=== PATIENT | male | born 1960 | race Caucasian/White ===

== ENCOUNTER 2020-03-06 18:45 | Emergency (ER) | payer MEDICAID, OTHER ==
[~2020-03-06] VITALS: Ht 182.9 cm; Wt 95.0 kg
[~2020-03-06 18:45] MED LIST: ASPI-630 PO; FOLI1TAB16 PO; HYDR100C2 PO; IBUP-1060 PO; MULT1TAB97 PO; PANT40TA77 PO; PARO40TA3 PO; PRAZ2CAP2 PO; PROVENTIL HFA6.7 GM IH; QUET300T PO; RANI150T2 PO; THIA100T22 PO; TRAM50TA PO
[2020-03-06] MEDS ORDERED: DICYCLOMINE 20 MG/2 ML VIAL. IM ONE (19:45)
[2020-03-06] MEDS ORDERED: ONDANSETRON PF 4 MG/2 ML VIAL. IVP ONE (19:45)
[2020-03-06] MEDS ORDERED: IV NORMAL SALINE 1000ML BAG 1,000 ML IV ONE (19:45)
[2020-03-06] MEDS ORDERED: fentaNYL PF VIAL 100 MCG/2 ML VIAL IVP ONE (19:45)
--- NOTE | 2020-03-06 20:03 | ED.ADGEN ---
General Adult EDM: Chief Complaint: ABDOMINAL PAIN HPI: HPI: 60-year-old male coming in via EMS form a hotel that is housing Covid positive patients. He is complaining of 2 hours of 3-4 episodes of each vomiting and diarrhea. He tested positive for Covid 2 days ago. He denies any fevers, headaches, cough, chest pain or shortness of breath. Has a history of GERD and gastroenteritis but has not had his medications for 1 day. He is only able to state that he takes omeprazole, does not member any other medications. Review of Systems: Review of Systems: All other systems within normal limits except for as noted in the HPI Current Medications: Current Medications Medications (Trade) Dose Ordered Sig/Helen Start Time Stop Time Status Last Admin Dose Admin Acetaminophen/ Hydrocodone Bitart (Lortab 5/325) 1 tab STK-MED ONCE 03/06/20 22:18 03/06/20 22:19 DC Dicyclomine HCl (Bentyl) 20 mg 1X ONCE 03/06/20 19:45 03/06/20 20:31 DC 03/06/20 20:55 20 MG Fentanyl Citrate (Fentanyl 2ml Vial) 75 mcg 1X ONCE 03/06/20 19:45 03/06/20 20:31 DC 03/06/20 20:52 75 MCG Ondansetron HCl (Zofran) 4 mg 1X ONCE 03/06/20 19:45 03/06/20 20:31 DC 03/06/20 20:51 4 MG Sodium Chloride 1,000 ml @ 1,000 mls/hr 1X ONCE 03/06/20 19:45 03/06/20 20:44 DC 03/06/20 20:51 1,000 MLS/HR Allergies: Allergies: Allergies Coded Allergies Type Severity Reaction Last Updated Verified ketorolac Allergy Mild itching 03/06/20 Yes oxycodone Allergy Mild itching 03/06/20 Yes meperidine Allergy Unknown 03/06/20 Yes Physical Exam: PE: Constitutional: Well developed, well nourished, no acute distress, non-toxic appearance. [] HENT: Normocephalic, atraumatic, bilateral external ears normal, nose normal. [] Eyes: PERRLA, conjunctiva normal, no discharge. [] Neck: No rigidity, supple, no stridor. [] Cardiovascular: Regular rate and rhythm, brisk cap refill [] Lungs & Thorax: Non labored symmetric respirations, no tachypnea or respiratory distress [] Abdomen: Soft, nondistended, lower abdomen tenderness without guarding or rebound. Skin: Warm, dry, no erythema, no rash. [] Back: No tenderness, no CVA tenderness. [] Extremities: No deformities, range of motion grossly intact, no lower extremity edema [] Neurologic: Alert and oriented X 3, no focal deficits noted. [] Psychologic: Affect normal, judgement normal, mood normal. [] Current Patient Data: Labs: Laboratory Tests Test 03/06/20 20:30 03/06/20 22:20 White Blood Count 4.8 x10^3/uL (4.0-11.0) Red Blood Count 4.24 x10^6/uL (4.30-5.70) L Hemoglobin 12.6 g/dL (13.0-17.5) L Hematocrit 37.5 % (39.0-53.0) L Mean Corpuscular Volume 89 fL (79-100) Mean Corpuscular Hemoglobin 30 pg (25-35) Mean Corpuscular Hemoglobin Concent 34 g/dL (31-37) Red Cell Distribution Width 16.9 % (11.5-14.5) H Platelet Count 245 x10^3/uL (140-400) Neutrophils (%) (Auto) 72 % (31-73) Lymphocytes (%) (Auto) 16 % (24-48) L Monocytes (%) (Auto) 11 % (0-9) H Eosinophils (%) (Auto) 1 % (0-3) Basophils (%) (Auto) 1 % (0-3) Neutrophils # (Auto) 3.4 x10^3/uL (1.8-7.7) Lymphocytes # (Auto) 0.7 x10^3/uL (1.0-4.8) L Monocytes # (Auto) 0.5 x10^3/uL (0.0-1.1) Eosinophils # (Auto) 0.0 x10^3/uL (0.0-0.7) Basophils # (Auto) 0.0 x10^3/uL (0.0-0.2) Sodium Level 130 mmol/L (136-145) L Potassium Level 4.0 mmol/L (3.5-5.1) Chloride Level 98 mmol/L (98-107) Carbon Dioxide Level 23 mmol/L (21-32) Anion Gap 9 (6-14) Blood Urea Nitrogen 9 mg/dL (8-26) Creatinine 0.7 mg/dL (0.7-1.3) Estimated GFR (Cockcroft-Gault) 115.8 BUN/Creatinine Ratio 13 (6-20) Glucose Level 92 mg/dL (70-99) Calcium Level 9.1 mg/dL (8.5-10.1) Total Bilirubin 0.2 mg/dL (0.2-1.0) Aspartate Amino Transferase (AST) 23 U/L (15-37) Alanine Aminotransferase (ALT) 24 U/L (16-63) Alkaline Phosphatase 67 U/L (46-116) Total Protein 6.5 g/dL (6.4-8.2) Albumin 3.3 g/dL (3.4-5.0) L Albumin/Globulin Ratio 1.0 (1.0-1.7) Lipase 87 U/L (73-393) Urine Collection Type Unknown Urine Color Yellow Urine Clarity Clear Urine pH 8.5 (<5.0-8.0) Urine Specific [place] 1.015 (1.000-1.030) Urine Protein Negative mg/dL (NEG-TRACE) Urine Glucose (UA) Negative mg/dL (NEG) Urine Ketones (Stick) Negative mg/dL (NEG) Urine Blood Negative (NEG) Urine Nitrite Negative (NEG) Urine Bilirubin Negative (NEG) Urine Urobilinogen Dipstick 0.2 mg/dL (0.2 mg/dL) Urine Leukocyte Esterase Negative (NEG) Urine RBC 0 /HPF (0-2) Urine WBC 0 /HPF (0-4) Urine Bacteria 0 /HPF (0-FEW) Urine Opiates Screen Pos (NEG) Urine Methadone Screen Neg (NEG) Urine Barbiturates Neg (NEG) Urine Phencyclidine Screen Neg (NEG) Urine Amphetamine/Methamphetamine Neg (NEG) Urine Benzodiazepines Screen Neg (NEG) Urine Cocaine Screen Neg (NEG) Urine Cannabinoids Screen Neg (NEG) Urine Ethyl Alcohol Neg (NEG) Laboratory Tests 03/06/20 20:30 Laboratory Tests 03/06/20 20:30 Vital Signs: Vital Signs Date Time Temp Pulse Resp B/P (MAP) Pulse Ox O2 Delivery O2 Flow Rate FiO2 03/06/20 22:22 98 Room Air 03/06/20 20:52 24 03/06/20 20:39 80 149/97 (114) 03/06/20 18:47 97.9 97.9 EKG: EKG: [] Heart Score: Risk Factors: Risk Factors: DM, Current or recent (<one month) smoker, HTN, HLP, family history of CAD, obesity. Risk Scores: Score 0 - 3: 2.5% MACE over next 6 weeks - Discharge Home Score 4 - 6: 20.3% MACE over next 6 weeks - Admit for Clinical Observation Score 7 - 10: 72.7% MACE over next 6 weeks - Early Invasive Strategies Radiology/Procedures: Radiology/Procedures: [] Course & Med Decision Making: Course & Med Decision Making Pertinent Labs and Imaging studies reviewed. (See chart for details) Exam abdominal exam and patient tolerating p.o. pain medicines. No indication for imaging as symptoms are improved and controlled with benign exam. Lab results unremarkable [] Ericon Disclaimer: Ariel Disclaimer: This electronic medical record was generated, in whole or in part, using a voice recognition dictation system. Departure Departure Impression: Primary Impression: Nausea vomiting and diarrhea Disposition: 01 DC HOME SELF CARE/HOMELESS Condition: STABLE Patient Instructions: Nausea and Vomiting Additional Instructions: [facility] [address] [place] [address] [facility] [address] [place] [address] [facility] [address] [facility] [place] [address] [facility] [address] [place] [address] [facility] [address] [place] [address] [address] [place] [address] [address] [place] [address] [facility] [address] [place] [address] [facility] [address] [place] [address] [facility] [address] [place] [address] Scripts Tramadol Hcl (TRAMADOL HCL) 50 Mg Tablet 50 MG PO Q6HRS PRN for PAIN for 3 Days, #12 TAB Prov: KRYSTINA MAGUIRE MD 03/06/20 Ondansetron (ONDANSETRON ODT) 4 Mg Tab.rapdis 1 TAB PO PRN Q6-8HRS PRN for NAUSEA for 5 Days, #16 TAB Prov: KRYSTINA MAGUIRE MD 03/06/20 Omeprazole (OMEPRAZOLE) 20 Mg Tablet.dr 1 TAB PO DAILY for antacid for 30 Days, #30 TAB 3 Refills Prov: KRYSTINA MAGUIRE MD 03/06/20 KRYSTINA MAGUIRE MD Mar 06, 2020 20:03
[2020-03-06 20:53] LABS: BASO % 1 % (0-3); EOS % 1 % (0-3); HEMATOCRIT 37.5 % (39.0-53.0); HEMOGLOBIN 12.6 g/dL (13.0-17.5); LYMPH # 0.7 x10^3/uL (1.0-4.8); LYMPH % 16 % (24-48); MEAN CORPUSCULAR HEMOGLOBIN 30 pg (25-35); MEAN CORPUSCULAR HGB CONC 34 g/dL (31-37); MEAN CORPUSCULAR VOLUME 89 fL (79-100); MONO # 0.5 x10^3/uL (0.0-1.1); MONO % 11 % (0-9); NEUT # 3.4 x10^3/uL (1.8-7.7); NEUT % 72 % (31-73); PLATELET COUNT 245 x10^3/uL (140-400); RED BLOOD COUNT 4.24 x10^6/uL (4.30-5.70); RED CELL DISTRIBUTION WIDTH 16.9 % (11.5-14.5); WHITE BLOOD COUNT 4.8 x10^3/uL (4.0-11.0)
[2020-03-06 21:10] LABS: CALCIUM 9.1 mg/dL (8.5-10.1); CREATININE 0.7 mg/dL (0.7-1.3); GFR 115.8
[2020-03-06 21:15] LABS: ALBUMIN 3.3 g/dL (3.4-5.0); TOTAL BILIRUBIN 0.2 mg/dL (0.2-1.0); TOTAL PROTEIN 6.5 g/dL (6.4-8.2)
[2020-03-06] MEDS ORDERED: HYDROcodone/APAP 5/325MG 1 TAB TABLET ONE (22:18)
[2020-03-06 22:28] LABS: BILIRUBIN,URINE NEGATIVE (NEG); CLARITY,URINE CLEAR; COLOR,URINE YELLOW; NITRITE,URINE NEGATIVE (NEG); PH,URINE 8.5 (<5.0-8.0); PROTEIN,URINE NEGATIVE (NEG-TRACE); UROBILINOGEN,URINE 0.2 mg/dL (0.2 mg/dL)
[2020-03-06] MEDS ORDERED: HYDROcodone/APAP 5/325MG 1 TAB TABLET PO ONE (22:30)
[2020-03-06 22:35] LABS: BACTERIA,URINE 0 /HPF (0-FEW); BARBITURATES NEG (NEG); BENZODIAZEPINES NEG (NEG); CANNABINOIDS NEG (NEG); COCAINE NEG (NEG); METHADONE NEG (NEG); OPIATES POS (NEG); PHENCYCLIDINE NEG (NEG); RBC,URINE 0 /HPF (0-2); WBC,URINE 0 /HPF (0-4)
[2020-03-06 22:37] LABS: AMPHETAMINE/METHAMPHETAMINE NEG (NEG)
[2020-03-06] MEDS ORDERED: TRAM50TA PO (23:08)
[2020-03-06] MEDS ORDERED: OMEP20TA8 PO (23:08)
[2020-03-06] MEDS ORDERED: ONDA4TAB12 PO (23:08)
[2020-03-06 23:09] VITALS: BP 129/96
== END 2020-03-07 00:35 | disposition home or self-care (01) ==
LOC: ER 18:45 → MERGE 18:45 → ER 03-07 00:35
DX: R11.2 Nausea with vomiting, unspecified (principal); R19.7 Diarrhea, unspecified; Z88.5 Allergy status to narcotic agent; Z88.8 Allergy status to other drugs, medicaments and biological substances
CPT/HCPCS: 36415; 80053; 80307; 81001; 83690; 85025; 96361; 96372; 96374; 96375; 99285; J0500; J2405; J3010; J7030

== ENCOUNTER 2020-03-15 23:53 | Emergency (ER) | payer MEDICAID ==
[~2020-03-15] VITALS: Ht 172.7 cm; Wt 84.1 kg
[~2020-03-15 23:53] MED LIST changes: +OMEP20TA8 PO; +ONDA4TAB12 PO
[2020-03-16] MEDS ORDERED: LIDO:MAALOX 1:1 20 ML SINGLE DOSE. SWSW ONE (00:30)
--- NOTE | 2020-03-16 00:33 | PHYS DOC ---
Past Medical History Past Medical History: Hypertension, Other Additional Past Medical Histor: ABDOMINAL PAIN Past Surgical History: Appendectomy, Other Additional Past Surgical Histo: right shoulder Smoking Status: Current Every Day Smoker Alcohol Use: None Drug Use: None General Adult EDM: Chief Complaint: ABDOMINAL PAIN HPI: HPI: 60-year-old male past medical history of hypertension and diagnosed with Covid 03/04 (per pts' report - is currently living in hotel that houses covid individuals), presents to the ED with complaints of lower abdominal pain that has been constant for 2 months. States he usually follows at the [facility] and had an upper GI in January. Unsure of the results because he never followed up. Patient states he usually gets a GI cocktail and his symptoms go away. Surgical history of appendectomy. Patient reports IV blood draws/sticks, hurt more than his current abdominal pain. Denies any IV drug use. States he normally drinks alcohol but hasn't been able to in the past 5 weeks. Associated nausea and loose watery stool for the past 2 days. No recent antibiotics. Denies any trauma. Is requesting a stronger pain medication other than Tylenol, ibuprofen and a GI cocktail. Review of Systems: Review of Systems: Constitutional: Denies fever or chills. [] Eyes: Denies change in visual acuity. [] HENT: Denies nasal congestion or sore throat. [] Respiratory: Denies cough or shortness of breath or hemoptysis Cardiovascular: Denies chest pain or edema or syncope GI: Denies melena, hematochezia, hematemesis : Denies dysuria or dysuria Musculoskeletal: Denies back pain or joint pain. [] Integument: Denies rash or diaphoresis Neurologic: Denies headache, focal weakness or sensory changes. [] Endocrine: Denies polyuria or polydipsia. [] Lymphatic: Denies swollen glands. [] Psychiatric: Denies depression or anxiety. [] Heart Score: Risk Factors: Risk Factors: DM, Current or recent (<one month) smoker, HTN, HLP, family history of CAD, obesity. Risk Scores: Score 0 - 3: 2.5% MACE over next 6 weeks - Discharge Home Score 4 - 6: 20.3% MACE over next 6 weeks - Admit for Clinical Observation Score 7 - 10: 72.7% MACE over next 6 weeks - Early Invasive Strategies Current Medications: Current Medications Medications (Trade) Dose Ordered Sig/Helen Start Time Stop Time Status Last Admin Dose Admin Multi-Ingredient Mouthwash/Gargle (Gi Cocktail) 20 ml 1X ONCE 03/16/20 00:30 03/16/20 00:31 UNV Allergies: Allergies: Allergies Coded Allergies Type Severity Reaction Last Updated Verified ketorolac Allergy Mild itching 03/06/20 Yes oxycodone Allergy Mild itching 03/06/20 Yes meperidine Allergy Unknown 03/06/20 Yes Physical Exam: PE: Constitutional: Well developed, well nourished, no acute distress/calm/sleeping, non-toxic appearance. HENT: Normocephalic, atraumatic, Eyes: EOMI, conjunctiva normal, no discharge. Neck: Normal range of motion, supple, Cardiovascular: S1/2 present, regular rhythm Lungs & Thorax: Speaking in full sentences, bilateral equal chest rise, no tachypnea or increased work of breathing Abdomen: soft, no focal or localized tenderness, tolerates abdominal exam, no peritonitis or guarding, no Perez sign, no Rovsing sign, no pain over McBurney's point tenderness Skin: Warm, dry, no erythema, no rash. [] Back: No tenderness, no CVA tenderness. [] Extremities: No tenderness, no cyanosis, no edema Neurologic: Alert and oriented X 3, normal motor function, normal sensory function, no focal deficits noted. [] Psychologic: Affect normal, judgement normal, mood normal. [] Current Patient Data: Vital Signs: Vital Signs Date Time Temp Pulse Resp B/P (MAP) Pulse Ox O2 Delivery O2 Flow Rate FiO2 03/15/20 23:54 98.1 90 16 145/92 (109) 94 Room Air 98.1 EKG: EKG: [] Radiology/Procedures: Radiology/Procedures: IMAGING REPORT Signed PATIENT: HERNESTO LOPEZ ACCOUNT: [id number] : 1960 LOCATION: ER AGE: 60 SEX: M EXAM STATUS: DEP ER ORD. PHYSICIAN: RANDAL HOLLEY DO REASON: abdominal pain, nausea and vomiting PROCEDURE: ACUTE ABDOMEN SERIES Study: XR ABDOMEN COMP ACUTE Indication: Abdominal pain, nausea and vomiting. Comparison: CT abdomen/pelvis 01/28/2020; acute abdominal series 01/09/2018 Findings: Unchanged cardiomediastinal silhouette. Similar configuration of the arelis. Increased lung markings with a relative subpleural and basilar predilection that are slightly more noticeable from the comparison. No dense infiltrate, layering effusion or pneumothorax. Partially visualized surgical hardware within the proximal right humerus. Gaseous distention of small bowel without pathologic dilatation. Gas is scattered throughout the colon and seen within the rectum also without pathologic dilatation. No definitive air-fluid level on the upright view. No free air seen under the diaphragm. Possible mild mucosal thickening of small bowel at the left lower quadrant. Chronic/degenerative osseous findings are fully characterized on this exam to include lumbar levocurvature with the apex at L3. Impression: 1. The bowel gas pattern is nonobstructive. No free air is identified. 2. Possible mild small bowel mucosal edema at the left lower quadrant. An enteritis is a consideration. 3. Slightly more noticeable interstitial markings from the comparison. No confluent infiltrate to suggest an organizing pneumonia. Underlying emphysema is a consideration. Electronically signed by: HENOK CANNON MD (03/16/2020 7:52 AM) [id number] DICTATED and SIGNED BY: HENOK CANNON MD DATE: 03/16/20 [id number] 0 Course & Med Decision Making: Course & Med Decision Making Pertinent Labs and Imaging studies reviewed. (See chart for details) Pt with mild, colon abdominal pain, no diarrhea/vomiting in ed, possible enteritis. Will refer to GI to have lower colonoscopy performed. Abdomen is soft. No active nausea, vomiting or diarrhea in ED. Patient very comfortable and resting in stretcher. Patient has been sleeping in the ED and is in no active distress. no indication for CT imaging at this time given benign exam, length of sxs (2mns) and risk of radiation-induced malignancy in the setting of chronic pain (pt educated on this). No indication for narcotic analgesia - pt educated on this and risk of addiction. Pt reports if he's discharged he will check in again to get these medications. Pt aware I'm the only physician/provider and he has been cleared of life/limb threatening conditions. Will discharge home with strict ED return precautions were given for dehydration, severe abdominal or back pain, saddle anesthesia, urine or bowel retention or incontinence. Encouraged urgent outpatient follow-up with PMD and GI. Life-threatening processes were considered but are low suspicion at this time, given history, physical exam and ED workup. Pt was educated on all prescription medications and adverse effects. All patient's questions were answered and pt was stable at time of discharge. Life/limb-threatening differential includes but is not limited to, aortic dissection, aortic aneurysm, acute coronary syndrome, surgical abdomen (appendicitis, cholecystitis, ischemic bowel, strangulated hernia, etc), bowel obstruction or volvulus, bladder outlet obstruction, gastrointestinal bleeding, inflammatory bowel disease, peptic ulcer disease, ACS/CAD, sepsis, diverticular disease, ureterolithiasis, nephrolithiasis, testicular torsion, or genitourinary infection. I spoken with the patient and her caregivers. I explained the patient's condition, diagnoses and treatment plan based on the information available to me at this time. I have answered the patient and her caregiver's questions and addressed any concerns. The patient and her caregivers have a good understanding of patient's diagnosis, condition and treatment plan as can be expected at this point. Vital signs have been stable. Patient's condition is stable and appropriate for discharge from the emergency department. Patient will pursue further outpatient evaluation with primary care physician or other designated or consulting physician as outlined in the discharge instructions. The patient and/or caregivers are agreeable to this plan of care and follow-up instructions have been explained in detail. The patient and/or caregivers have received these instructions in written form and have expressed an understanding of the discharge instructions. The patient and/or caregivers are aware that any significant change of condition or worsening of symptoms should prompt immediate return to this or the closest emergency department or call to 1. Ariel Disclaimer: Ariel Disclaimer: This electronic medical record was generated, in whole or in part, using a voice recognition dictation system. Departure Departure Impression: Primary Impression: Chronic abdominal pain Additional Impression: Encounter for chronic pain management Disposition: 01 DC HOME SELF CARE/HOMELESS Condition: STABLE Referrals: NO PCP (PCP) FOLLOW UP WITH FAMILY MEDICINE: Family Medicine Address: [address] [facility] [address] [place] [address] Patient Instructions: Abdominal Pain Additional Instructions: FOLLOW UP WITH GASTROENTEROLOGY: Gastroenterology [facility] Address: [address] [place] [address] EMERGENCY DEPARTMENT GENERAL DISCHARGE INSTRUCTIONS Thank you for coming to [facility] Emergency Department (ED) today and trusting us with you care. We trust that you had a positive experience in our Emergency Department. If you wish to speak to the department management, you may call the Director at [phone]. YOUR FOLLOW UP INSTRUCTIONS ARE FOLLOWS: 1. Do you have a private Doctor? If you do not have a private doctor, please ask for a resource list of physicians or clinics that may be able to assist you with follow up care. 2. The Emergency Physicain has interpreted your x-rays. The X-Ray specialist will also review them. If there is a change in the findings, you will be notified in 48 hours when at all possible. 3. A lab test or culture has been done, your results will be reviewed and you will be notified if you need a change in treatment. ADDITIONAL INSTRUCTIONS AND INFORMATION: 1. Your care today has been supervised by a physician who is specially trained in emergency care. Many problems require more than one evaluation for a complete diagnosis and treatment. We recommend that you schedule your follow up appointment as recommended to ensure complete treatment of you illness or injury. If you are unable to obtain follow up care and continue to have a problem, or if your condition worsens, we recommend that you return to the ED. 2. We are not able to safely determine your condition over the phone nor are we able to give sound medical advice over the phone. For these safety reasons, if you call for medical advice we will ask you to come to the ED for further evaluation. 3. If you have any questions regarding these discharge instructions please call the ED at [phone]. SAFETY INFORMATION: In the interest of safety, wellness, and injury prevention; we encourage you to wear your sealbelt, if you smoke; quite smoking, and we encourage family to use a protective helmet for bicycling and other sporting events that present an increased risk for head injury. IF YOUR SYMPTOMS WORSEN OR NEW SYMPTOMS DEVELOP, OR YOU HAVE CONCERNS ABOUT YOUR CONDITION; OR IF YOUR CONDITION WORSENS WHILE YOU ARE WAITING FOR YOUR FOLLOW UP APPOINTMENT; EITHER CONTACT YOUR PRIMARY CARE DOCTOR, THE PHYSICIAN WHOSE NAME AND NUMBER YOU WERE GIVEN, OR RETURN TO THE ED IMMEDIATELY. DUGLAS KOCH DO Mar 16, 2020 00:33
[2020-03-16 01:00] VITALS: BP 136/86
[2020-03-16 01:09] LABS: BARBITURATES NEG (NEG); BENZODIAZEPINES NEG (NEG); CANNABINOIDS NEG (NEG); COCAINE NEG (NEG); METHADONE NEG (NEG); OPIATES NEG (NEG); PHENCYCLIDINE NEG (NEG)
[2020-03-16 01:10] LABS: AMPHETAMINE/METHAMPHETAMINE NEG (NEG)
[2020-03-16 01:27] LABS: BILIRUBIN,URINE NEGATIVE (NEG); CLARITY,URINE CLEAR; COLOR,URINE YELLOW; NITRITE,URINE NEGATIVE (NEG); PROTEIN,URINE NEGATIVE (NEG-TRACE); UROBILINOGEN,URINE 0.2 mg/dL (0.2 mg/dL)
[2020-03-16 01:33] LABS: BACTERIA,URINE 0 /HPF (0-FEW); RBC,URINE 0 /HPF (0-2); WBC,URINE OCC /HPF (0-4)
[2020-03-16 01:40] LABS: BASO # 0.1 x10^3/uL (0.0-0.2); BASO % 1 % (0-3); EOS # 0.1 x10^3/uL (0.0-0.7); EOS % 1 % (0-3); HEMATOCRIT 38.9 % (39.0-53.0); HEMOGLOBIN 13.2 g/dL (13.0-17.5); LYMPH # 1.5 x10^3/uL (1.0-4.8); LYMPH % 13 % (24-48); MEAN CORPUSCULAR HEMOGLOBIN 30 pg (25-35); MEAN CORPUSCULAR HGB CONC 34 g/dL (31-37); MEAN CORPUSCULAR VOLUME 89 fL (79-100); MONO % 9 % (0-9); NEUT # 8.8 x10^3/uL (1.8-7.7); NEUT % 76 % (31-73); PLATELET COUNT 369 x10^3/uL (140-400); RED BLOOD COUNT 4.37 x10^6/uL (4.30-5.70); RED CELL DISTRIBUTION WIDTH 16.7 % (11.5-14.5); WHITE BLOOD COUNT 11.6 x10^3/uL (4.0-11.0)
[2020-03-16 01:48] LABS: CALCIUM 9.4 mg/dL (8.5-10.1); CREATININE 1.3 mg/dL (0.7-1.3); GFR 56.7; POTASSIUM 4.2 mmol/L (3.5-5.1)
== END 2020-03-16 02:25 | disposition home or self-care (01) ==
LOC: ER 23:53 → MERGE 23:53 → ER 03-16 02:25
DX: G89.29 Other chronic pain (principal); R10.30 Lower abdominal pain, unspecified; R11.0 Nausea; R19.7 Diarrhea, unspecified; I10 Essential (primary) hypertension; F17.200 Nicotine dependence, unspecified, uncomplicated; Z90.89 Acquired absence of other organs; Z98.890 Other specified postprocedural states; Z88.5 Allergy status to narcotic agent; Z88.8 Allergy status to other drugs, medicaments and biological substances
CPT/HCPCS: 36415; 80048; 80307; 81001; 83690; 85025; 99283; G0480

== ENCOUNTER 2020-03-16 05:30 | Emergency (ER) | payer SELFPAY ==
[~2020-03-16] VITALS: Ht 172.7 cm; Wt 84.1 kg
[2020-03-16 06:00] VITALS: BP 148/99
[2020-03-16] MEDS ORDERED: ONDANSETRON ODT 4 MG TAB.RAPDIS. PO ONE (07:30)
--- NOTE | 2020-03-16 07:42 | PHYS DOC ---
Past Medical History Past Medical History: Hypertension, Other Additional Past Medical Histor: ABDOMINAL PAIN Past Surgical History: Appendectomy, Other Additional Past Surgical Histo: right shoulder Smoking Status: Current Every Day Smoker Alcohol Use: Heavy Additional Information: LAST DRINK 5 WEEKS AGO Drug Use: None General Adult EDM: Chief Complaint: ABDOMINAL PAIN HPI: HPI: Patient is a 60 year old male with past medical history of hypertension and diagnosed with Covid 03/04. He is currently living in hotel that houses covid individuals. Patient was just seen here earlier for abdominal pain with nausea and vomiting. Patient was treated, felt better, was just discharged home but then decided to check back in because he still has nausea and pain. He has this problem , lower abdominal pain that has been constant for 2 months. He stated that he was seen at [facility] and had an upper GI in January of last year. He is not sure about the results because he never followed up. Patient states he usually gets a GI cocktail and his symptoms go away. Patient already had appendectomy. He normally drinks alcohol but hasn't been able to drink in the past 5 weeks. Review of Systems: Review of Systems: Constitutional: Denies fever or chills. [] Eyes: Denies change in visual acuity. [] HENT: Denies nasal congestion or sore throat. [] Respiratory: Denies cough or shortness of breath. [] Cardiovascular: Denies chest pain or edema. [] GI: Positive for abdominal pain, nausea, vomiting, NO bloody stools or diarrhea. [] : Denies dysuria. [] Musculoskeletal: Denies back pain or joint pain. [] Integument: Denies rash. [] Neurologic: Denies headache, focal weakness or sensory changes. [] Endocrine: Denies polyuria or polydipsia. [] Lymphatic: Denies swollen glands. [] Psychiatric: Denies depression or anxiety. [] Heart Score: Risk Factors: Risk Factors: DM, Current or recent (<one month) smoker, HTN, HLP, family history of CAD, obesity. Risk Scores: Score 0 - 3: 2.5% MACE over next 6 weeks - Discharge Home Score 4 - 6: 20.3% MACE over next 6 weeks - Admit for Clinical Observation Score 7 - 10: 72.7% MACE over next 6 weeks - Early Invasive Strategies Current Medications: Current Medications Medications (Trade) Dose Ordered Sig/Helen Start Time Stop Time Status Last Admin Dose Admin Ondansetron HCl (Zofran Odt) 4 mg 1X ONCE 03/16/20 07:30 03/16/20 07:31 DC Allergies: Allergies: Allergies Coded Allergies Type Severity Reaction Last Updated Verified ketorolac Allergy Mild itching 03/06/20 Yes oxycodone Allergy Mild itching 03/06/20 Yes meperidine Allergy Unknown 03/06/20 Yes Physical Exam: PE: Constitutional: Well developed, well nourished, no acute distress, non-toxic appearance. [] HENT: Normocephalic, atraumatic, bilateral external ears normal, oropharynx moist, no oral exudates, nose normal. [] Eyes: PERRLA, EOMI, conjunctiva normal, no discharge. [] Neck: Normal range of motion, no tenderness, supple, no stridor. [] Cardiovascular:Heart rate regular rhythm, no murmur [] Lungs & Thorax: Bilateral breath sounds clear to auscultation [] Abdomen: Bowel sounds normal, soft, no tenderness, no masses, no pulsatile masses. [] Skin: Warm, dry, no erythema, no rash. [] Back: No tenderness, no CVA tenderness. [] Extremities: No tenderness, no cyanosis, no clubbing, ROM intact, no edema. [] Neurologic: Alert and oriented X 3, normal motor function, normal sensory function, no focal deficits noted. [] Psychologic: Affect normal, judgement normal, mood normal. [] Current Patient Data: Labs: Current Medications Medications (Trade) Dose Ordered Sig/Helen Route PRN Reason Start Time Stop Time Status Last Admin Dose Admin Ondansetron HCl (Zofran Odt) 4 mg 1X ONCE PO 03/16/20 07:30 03/16/20 07:31 DC 03/16/20 07:45 Vital Signs: Vital Signs Date Time Temp Pulse Resp B/P (MAP) Pulse Ox O2 Delivery O2 Flow Rate FiO2 03/16/20 06:00 97.9 91 20 148/99 (115) 96 Room Air 97.9 EKG: EKG: [] Radiology/Procedures: Radiology/Procedures: [][facility] [address] [place] [address] IMAGING REPORT Signed PATIENT: HERNESTO LOPEZ ACCOUNT: [id number] : 1960 LOCATION: ER AGE: 60 SEX: M EXAM STATUS: REG ER ORD. PHYSICIAN: RANDAL HOLLEY DO REASON: abdominal pain, nausea and vomiting PROCEDURE: ACUTE ABDOMEN SERIES Study: XR ABDOMEN COMP ACUTE Indication: Abdominal pain, nausea and vomiting. Comparison: CT abdomen/pelvis 01/28/2020; acute abdominal series 01/09/2018 Findings: Unchanged cardiomediastinal silhouette. Similar configuration of the arelis. Increased lung markings with a relative subpleural and basilar predilection that are slightly more noticeable from the comparison. No dense infiltrate, layering effusion or pneumothorax. Partially visualized surgical hardware within the proximal right humerus. Gaseous distention of small bowel without pathologic dilatation. Gas is scattered throughout the colon and seen within the rectum also without pathologic dilatation. No definitive air-fluid level on the upright view. No free air seen under the diaphragm. Possible mild mucosal thickening of small bowel at the left lower quadrant. Chronic/degenerative osseous findings are fully characterized on this exam to include lumbar levocurvature with the apex at L3. Impression: 1. The bowel gas pattern is nonobstructive. No free air is identified. 2. Possible mild small bowel mucosal edema at the left lower quadrant. An enteritis is a consideration. 3. Slightly more noticeable interstitial markings from the comparison. No confluent infiltrate to suggest an organizing pneumonia. Underlying emphysema is a consideration. Electronically signed by: HENOK CANNON MD (03/16/2020 7:52 AM) [id number] DICTATED and SIGNED BY: HENOK CANNON MD DATE: 03/16/20 [id number] 0 Course & Med Decision Making: Course & Med Decision Making Pertinent Labs and Imaging studies reviewed. (See chart for details) Patient is a 60-year-old male who was just evaluated here in ER for abdominal pain with nausea vomiting, his lab work was normal. Patient was discharged from the ED, however he checked back pain because he still feels nauseous and pain. X-ray of his abdomen pelvic did not show an obstruction. Patient was in no acute distress. Patient said he feels nauseated and vomiting but he did not vomit anything but dry heaving. Patient will need to follow-up with his doctor at the [facility] for further evaluation and treatment. Patient will be discharged from the ED. Ariel Disclaimer: Dragpoppy Disclaimer: This electronic medical record was generated, in whole or in part, using a voice recognition dictation system. Departure Departure Impression: Primary Impression: Abdominal pain Disposition: 01 DC HOME SELF CARE/HOMELESS Condition: STABLE Referrals: NO PCP (PCP) Patient Instructions: Abdominal Pain Additional Instructions: Thank you for visiting our Emergency Department. We appreciate you trusting us with your care. If any additional problems come up don't hesitate to return to visit us. Please follow up with your primary care provider so they can plan additional care if needed and know about the problem that you had. If symptoms worsen come back to the Emergency Department. Any concerning symptoms that start such as chest pain, shortness of air, weakness or numbness on one side of the body, running high fevers or any other concerning symptoms return to the ER. RANDAL HOLLEY DO Mar 16, 2020 07:42
--- NOTE | 2020-03-16 07:55 | RAD ---
Study: XR ABDOMEN COMP ACUTE Indication: Abdominal pain, nausea and vomiting. Comparison: CT abdomen/pelvis 01/28/2020; acute abdominal series 01/09/2018 Findings: Unchanged cardiomediastinal silhouette. Similar configuration of the aerlis. Increased lung markings wi th a relative subpleural and basilar predilection that are slightly more noticeable from the comparis on. No dense infiltrate, layering effusion or pneumothorax. Partially visualized surgical hardware within the proximal right humerus. Gaseous distention of small bowel without pathologic dilatation. Gas is scattered throughout the colo n and seen within the rectum also without pathologic dilatation. No definitive air-fluid level on the upright view. No free air seen under the diaphragm. Possible mild mucosal thickening of small bowel at the left lower quadrant. Chronic/degenerative osseous findings are fully characterized on this exam to include lumbar levocurv ature with the apex at L3. Impression: 1. The bowel gas pattern is nonobstructive. No free air is identified. 2. Possible mild small bowel mucosal edema at the left lower quadrant. An enteritis is a consideratio n. 3. Slightly more noticeable interstitial markings from the comparison. No confluent infiltrate to sug gest an organizing pneumonia. Underlying emphysema is a consideration. Electronically signed by: HENOK CANNON MD (03/16/2020 7:52 AM) [id number]
[2020-03-16] MEDS ORDERED: LIDO:MAALOX 1:1 20 ML SINGLE DOSE. SWSW ONE (08:15)
== END 2020-03-16 08:18 | disposition home or self-care (01) ==
LOC: ER 05:30 → MERGE 05:30 → ER 08:18
DX: R10.30 Lower abdominal pain, unspecified (principal); R11.2 Nausea with vomiting, unspecified; I10 Essential (primary) hypertension; F17.200 Nicotine dependence, unspecified, uncomplicated; F10.10 Alcohol abuse, uncomplicated; Z90.89 Acquired absence of other organs; Z98.890 Other specified postprocedural states; Z88.5 Allergy status to narcotic agent; Z88.8 Allergy status to other drugs, medicaments and biological substances
CPT/HCPCS: 74022; 99283

== ENCOUNTER 2020-03-30 23:51 | Emergency (ER) | payer MEDICAID ==
[~2020-03-30] VITALS: Ht 172.7 cm; Wt 84.1 kg
[2020-03-31] MEDS ORDERED: METOCLOPRAMIDE HCL 10 MG/2 ML VIAL. IVP ONE (00:30)
[2020-03-31] MEDS ORDERED: FAMOTIDINE 20 MG/2 ML VIAL IVP ONE ×2 (00:30→02:00)
[2020-03-31] MEDS ORDERED: IV NORMAL SALINE 1000ML BAG 1,000 ML IV SCH (00:30)
[2020-03-31] MEDS ORDERED: ONDANSETRON PF 4 MG/2 ML VIAL. IVP ONE (01:00)
[2020-03-31] MEDS ORDERED: KETAMINE HCL 500 MG/10 ML VIAL. IV ONE (01:15)
[2020-03-31 01:55] LABS: BASO # 0.1 x10^3/uL (0.0-0.2); BASO % 1 % (0-3); EOS # 0.1 x10^3/uL (0.0-0.7); EOS % 1 % (0-3); HEMATOCRIT 34.8 % (39.0-53.0); HEMOGLOBIN 11.9 g/dL (13.0-17.5); LYMPH # 2.5 x10^3/uL (1.0-4.8); LYMPH % 19 % (24-48); MEAN CORPUSCULAR HEMOGLOBIN 31 pg (25-35); MEAN CORPUSCULAR HGB CONC 34 g/dL (31-37); MEAN CORPUSCULAR VOLUME 89 fL (79-100); MONO # 0.7 x10^3/uL (0.0-1.1); MONO % 5 % (0-9); NEUT # 9.9 x10^3/uL (1.8-7.7); NEUT % 75 % (31-73); PLATELET COUNT 333 x10^3/uL (140-400); RED BLOOD COUNT 3.91 x10^6/uL (4.30-5.70); RED CELL DISTRIBUTION WIDTH 16.7 % (11.5-14.5); WHITE BLOOD COUNT 13.2 x10^3/uL (4.0-11.0)
[2020-03-31] MEDS ORDERED: LIDO:MAALOX 1:1 20 ML SINGLE DOSE. SWSW ONE (02:00)
[2020-03-31] MEDS ORDERED: diphenhydrAMINE 50 MG/ML VIAL IVP ONE (02:00)
[2020-03-31] MEDS ORDERED: DEXAMETHASONE SOD PHOS 20 MG/5 ML VIAL. IV ONE (02:00)
[2020-03-31 02:02] LABS: CALCIUM 9.9 mg/dL (8.5-10.1); CREATININE 1.1 mg/dL (0.7-1.3); GFR 68.8; POTASSIUM 4.3 mmol/L (3.5-5.1)
[2020-03-31 02:08] LABS: ALBUMIN 3.6 g/dL (3.4-5.0); DIRECT BILIRUBIN 0.1 mg/dL (0.0-0.2); TOTAL BILIRUBIN 0.3 mg/dL (0.2-1.0); TOTAL PROTEIN 6.9 g/dL (6.4-8.2)
[2020-03-31 02:12] LABS: AMPHETAMINE/METHAMPHETAMINE NEG (NEG); BARBITURATES NEG (NEG); BENZODIAZEPINES NEG (NEG); CANNABINOIDS NEG (NEG); COCAINE NEG (NEG); METHADONE NEG (NEG); OPIATES NEG (NEG); PHENCYCLIDINE NEG (NEG)
[2020-03-31 02:17] LABS: BILIRUBIN,URINE NEGATIVE (NEG); CLARITY,URINE CLEAR; COLOR,URINE YELLOW; NITRITE,URINE NEGATIVE (NEG); PH,URINE 7.5 (<5.0-8.0); PROTEIN,URINE NEGATIVE (NEG-TRACE); UROBILINOGEN,URINE 0.2 mg/dL (0.2 mg/dL)
[2020-03-31 02:18] LABS: BACTERIA,URINE 0 /HPF (0-FEW); RBC,URINE OCC /HPF (0-2); WBC,URINE 0 /HPF (0-4)
--- NOTE | 2020-03-31 02:18 | PHYS DOC ---
Past Medical History Past Medical History: Alcoholism, Anxiety, Depression, Hypertension, Other Additional Past Medical Histor: ABDOMINAL PAIN Past Surgical History: Appendectomy, Other Additional Past Surgical Histo: right shoulder Smoking Status: Current Every Day Smoker Alcohol Use: Heavy Additional Information: Pt verbalized he drinks a pint daily Drug Use: None General Adult EDM: Chief Complaint: WITHDRAWL HPI: HPI: 60-year-old male past medical history of hypertension, tobacco dependence, daily alcohol abuse, and history of Covid March 04, presents the ED with complaints of "I'm loose upstairs," stating he stopped drinking alcohol 3 PM yesterday now with nausea and nonbloody nonbilious vomiting and loose watery diarrhea stating he has a history of pancreatitis. Reports lower abdominal pain. Review of Systems: Review of Systems: Constitutional: Denies fever or chills. [] Eyes: Denies change in visual acuity. [] HENT: Denies nasal congestion or sore throat. [] Respiratory: Denies cough or shortness of breath. [] Cardiovascular: Denies chest pain or edema. [] GI: Denies hematochezia, melena, moderate emesis : Denies dysuria or hematuria Musculoskeletal: Denies back pain or joint pain. [] Integument: Denies rash or crepitus Neurologic: Denies headache, focal weakness or sensory changes. [] Endocrine: Denies polyuria or polydipsia. [] Lymphatic: Denies swollen glands. [] Psychiatric: Denies depression or anxiety. [] Heart Score: Risk Factors: Risk Factors: DM, Current or recent (<one month) smoker, HTN, HLP, family history of CAD, obesity. Risk Scores: Score 0 - 3: 2.5% MACE over next 6 weeks - Discharge Home Score 4 - 6: 20.3% MACE over next 6 weeks - Admit for Clinical Observation Score 7 - 10: 72.7% MACE over next 6 weeks - Early Invasive Strategies Current Medications: Current Medications Medications (Trade) Dose Ordered Sig/Helen Start Time Stop Time Status Last Admin Dose Admin Dexamethasone Sodium Phosphate (Decadron) 10 mg 1X ONCE 03/31/20 02:00 03/31/20 02:01 DC 03/31/20 02:02 10 MG Diphenhydramine HCl (Benadryl) 25 mg 1X ONCE 03/31/20 02:00 03/31/20 02:01 DC 03/31/20 02:02 25 MG Famotidine (Pepcid Vial) 20 mg 1X ONCE 03/31/20 02:00 03/31/20 01:59 DC Iohexol (Omnipaque 300 Mg/ml) 75 ml 1X ONCE 03/31/20 02:15 03/31/20 02:16 UNV Ketamine HCl (Ketamine) 20 mg 1X ONCE 03/31/20 01:15 03/31/20 01:16 DC 03/31/20 01:39 20 MG Metoclopramide HCl (Reglan Vial) 10 mg 1X ONCE 03/31/20 00:30 03/31/20 00:33 DC 03/31/20 01:30 10 MG Multi-Ingredient Mouthwash/Gargle (Gi Cocktail) 20 ml 1X ONCE 03/31/20 02:00 03/31/20 02:01 UNV 03/31/20 02:12 20 ML Ondansetron HCl (Zofran) 8 mg 1X ONCE 03/31/20 01:00 03/31/20 01:01 DC 03/31/20 01:39 8 MG Sodium Chloride 1,000 ml @ 1,000 mls/hr Q1H 03/31/20 00:30 03/31/20 01:29 DC 03/31/20 01:31 1,000 MLS/HR Allergies: Allergies: Allergies Coded Allergies Type Severity Reaction Last Updated Verified hydromorphone HCl Allergy Intermediate 07/10/13 Yes ketorolac Allergy Intermediate "it's real bad" 07/28/13 Yes meperidine HCl Allergy Intermediate 07/10/13 Yes oxycodone HCl Allergy Intermediate 07/10/13 Yes oxycodone Allergy Mild itching 03/16/20 Yes meperidine Allergy Unknown 03/16/20 Yes Physical Exam: PE: Constitutional: Unkept disheveled appearance, afebrile HENT: Normocephalic, atraumatic, Eyes: EOMI, conjunctiva normal, no discharge. Neck: Normal range of motion, supple, Cardiovascular: S1/2 present, tachycardic 107 and 110 Lungs & Thorax: Speaking in full sentences, bilateral equal chest rise, no tachypnea or increased work of breathing Abdomen: soft, no tenderness, no peritonitis or rigidity, no Perez sign, no reproducible left lower quadrant or right lower quadrant tenderness, active nonbloody nonbilious vomiting Skin: Warm, dry, no erythema, no rash. [] Back: No tenderness, no CVA tenderness. [] Extremities: No tenderness, no cyanosis, no edema Neurologic: GCS 15 - knows month/year and when asked about what chiefs are going to do on thursday he states "duh, win!" Alert and oriented X 3, normal motor function, normal sensory function, no focal deficits noted. [] Psychologic: Affect normal, judgement normal, mood normal. [] Current Patient Data: Labs: Laboratory Tests Test 03/31/20 01:42 03/31/20 01:53 White Blood Count 13.2 x10^3/uL (4.0-11.0) H Red Blood Count 3.91 x10^6/uL (4.30-5.70) L Hemoglobin 11.9 g/dL (13.0-17.5) L Hematocrit 34.8 % (39.0-53.0) L Mean Corpuscular Volume 89 fL (79-100) Mean Corpuscular Hemoglobin 31 pg (25-35) Mean Corpuscular Hemoglobin Concent 34 g/dL (31-37) Red Cell Distribution Width 16.7 % (11.5-14.5) H Platelet Count 333 x10^3/uL (140-400) Neutrophils (%) (Auto) 75 % (31-73) H Lymphocytes (%) (Auto) 19 % (24-48) L Monocytes (%) (Auto) 5 % (0-9) Eosinophils (%) (Auto) 1 % (0-3) Basophils (%) (Auto) 1 % (0-3) Neutrophils # (Auto) 9.9 x10^3/uL (1.8-7.7) H Lymphocytes # (Auto) 2.5 x10^3/uL (1.0-4.8) Monocytes # (Auto) 0.7 x10^3/uL (0.0-1.1) Eosinophils # (Auto) 0.1 x10^3/uL (0.0-0.7) Basophils # (Auto) 0.1 x10^3/uL (0.0-0.2) Sodium Level 139 mmol/L (136-145) Potassium Level 4.3 mmol/L (3.5-5.1) Chloride Level 99 mmol/L (98-107) Carbon Dioxide Level 28 mmol/L (21-32) Anion Gap 12 (6-14) Blood Urea Nitrogen 12 mg/dL (8-26) Creatinine 1.1 mg/dL (0.7-1.3) Estimated GFR (Cockcroft-Gault) 68.8 Glucose Level 79 mg/dL (70-99) Calcium Level 9.9 mg/dL (8.5-10.1) Total Bilirubin 0.3 mg/dL (0.2-1.0) Direct Bilirubin 0.1 mg/dL (0.0-0.2) Aspartate Amino Transferase (AST) 28 U/L (15-37) Alanine Aminotransferase (ALT) 22 U/L (16-63) Alkaline Phosphatase 61 U/L (46-116) Creatine Kinase 148 U/L (39-308) Total Protein 6.9 g/dL (6.4-8.2) Albumin 3.6 g/dL (3.4-5.0) Lipase 118 U/L (73-393) Ethyl Alcohol Level 49 mg/dL (0-10) H Urine Opiates Screen Neg (NEG) Urine Methadone Screen Neg (NEG) Urine Barbiturates Neg (NEG) Urine Phencyclidine Screen Neg (NEG) Urine Amphetamine/Methamphetamine Neg (NEG) Urine Benzodiazepines Screen Neg (NEG) Urine Cocaine Screen Neg (NEG) Urine Cannabinoids Screen Neg (NEG) Urine Ethyl Alcohol Pos (NEG) Laboratory Tests 03/31/20 01:42 Laboratory Tests 03/31/20 01:42 Vital Signs: Vital Signs Date Time Temp Pulse Resp B/P (MAP) Pulse Ox O2 Delivery O2 Flow Rate FiO2 03/31/20 00:10 98.2 91 18 155/83 (107) 98 Room Air 98.2 EKG: EKG: Sinus rhythm at 91 bpm, no axis deviation, normal intervals, T wave inversion lead III, no ST elevations or ST depressions Radiology/Procedures: Radiology/Procedures: IMAGING REPORT Signed PATIENT: HERNESTO LOPEZ ACCOUNT: [id number] : 1960 LOCATION: ER AGE: 60 SEX: M EXAM STATUS: REG ER ORD. PHYSICIAN: DUGLAS KOCH DO REASON: lower abd pain, OMNI 300, 75 ML IV PROCEDURE: CT ABD PELV W/ IV CONTRST ONLY CT abdomen and pelvis with contrast PQRS statement: CT scans at this facility use dose reduction including either automated exposure control, iterative reconstructions, and /or weight based radiation dosing via mA and kV modification when appropriate to reduce radiation dose to as low as reasonably achievable. Contrast: 75 mL Omnipaque 300 intravenous contrast. HISTORY: Lower abdominal pain. Abdomen findings: Lumbar disc disease with disc osteophytes with spinal canal and neural foraminal stenoses. Lung bases are unremarkable. Subcentimeter right renal hypodensity too small to characterize due to volume averaging, statistically most likely a cyst. Left kidney, adrenals, pancreas, spleen, liver and gallbladder are unremarkable. Tortuosity and calcified likely aorta and iliac arteries. No abdominal fluid or adenopathy. Appendectomy. No obstruction or inflammation GI tract. No abdominal fluid or adenopathy. 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 Pelvis findings: Bladder, prostate, rectum and bones are unremarkable. IMPRESSION: No acute process. Appendectomy. Electronically signed by: Amy Mccormick MD (03/31/2020 2:49 AM) [facility] DICTATED and SIGNED BY: AMY MCCORMICK MD DATE: 03/31/20 [id number] 0 Course & Med Decision Making: Course & Med Decision Making Pertinent Labs and Imaging studies reviewed. (See chart for details) Patient presents to the ED with nausea, nonbloody nonbilious vomiting in the setting of alcohol intoxication, reports lower abdominal pain although physical exam is very benign. Patient reports allergies to Tylenol and multiple opioids. Try IV ketamine was given patient developed very mild area of urticaria over left forearm near an IV site -3x8 cm. Oropharynx patent. Steroids, Benadryl and Pepcid given. Patient was also treated with IV fluids, Reglan, Zofran and GI cocktail. Patient reports he can take Tylenol and has specific allergies to opioid narcotics but reports he can take fentanyl and morphine. Unsure what his ketorolac allergy is. Given allergic reaction, common presentation and resolution of nausea and vomiting, no further analgesic medications are bryan mmended. 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 I educated on risk of addiction. CT a/p with no acute process. Labs wnl. Tachycardia resolved. No leukocytosis. Patient is well-appearing and in no active distress. Will discharge home with strict ED return precautions were given for worsening rash, difficulties breathing, drooling, head or neck swelling or severe pain. Encouraged urgent outpatient follow-up with PMD and pain management. Life-threatening processes were considered but are low suspicion at this time, given history, physical exam and ED workup. Pt was educated on all prescription medications and adverse effects. All patient's questions were answered and pt was stable at time of discharge. Life/limb-threatening differential includes but is not limited to, acute coronary syndrome/myocardial infarction, Boerhaave's, DKA, intracranial hemorrhage, ischemic bowel, meningitis, sepsis, surgical abdomen (AAA/aortic dissection), toxidrome (drug over/overdose/carbon monoxide, etc), trauma, or infection/sepsis, surgical abdomen (appendicitis, cholecystitis, ischemic bowel, strangulated hernia, etc), bowel obstruction or volvulus, bladder outlet obstruction, gastrointestinal bleeding, inflammatory bowel disease, peptic ulcer disease, diverticular disease, ureterolithiasis, nephrolithiasis, or genitourinary infection. I spoken with the patient and her caregivers. I explained the patient's condition, diagnoses and treatment plan based on the information available to me at this time. I have answered the patient and her caregiver's questions and addressed any concerns. The patient and her caregivers have a good understandi ng of patient's diagnosis, condition and treatment plan as can be expected at this point. Vital signs have been stable. Patient's condition is stable and appropriate for discharge from the emergency department. Patient will pursue further outpatient evaluation with primary care physician or other designated or consulting physician as outlined in the discharge instructions. The patient and/or caregivers are agreeable to this plan of care and follow-up instructions have been explained in detail. The patient and/or caregivers have received these instructions in written form and have expressed an understanding of the discharge instructions. The patient and/or caregivers are aware that any significant change of condition or worsening of symptoms should prompt immediate return to this or the closest emergency department or call to 911. Ariel Disclaimer: Ariel Disclaimer: This electronic medical record was generated, in whole or in part, using a voice recognition dictation system. Departure Departure Impression: Primary Impression: Nausea and vomiting Additional Impressions: Normocytic anemia Alcohol intoxication Lower abdominal pain Allergic reaction Drug-seeking behavior Disposition: 01 DC HOME SELF CARE/HOMELESS Condition: STABLE Referrals: NO PCP (PCP) FOLLOW UP WITH FAMILY MEDICINE: Family Medicine Address: [address], [address] [place] [address] Patient Instructions: Alcohol Intoxication, Anemia, Nonspecific-Brief, Hives Additional Instructions: FOLLOW UP WITH PAIN MANAGEMENT: [facility] Address: [address], [address] [place] [address] EMERGENCY DEPARTMENT GENERAL DISCHARGE INSTRUCTIONS Thank you for coming to [facility] Emergency Department (ED) today and trusting us with you care. We trust that you had a positive experience in our Emergency Department. If you wish to speak to the department management, you may call the Director at [phone]. YOUR FOLLOW UP INSTRUCTIONS ARE FOLLOWS: 1. Do you have a private Doctor? If you do not have a private doctor, please ask for a resource list of physicians or clinics that may be able to assist you with follow up care. 2. The Emergency Physicain has interpreted your x-rays. The X-Ray specialist will also review them. If there is a change in the findings, you will be notified in 48 hours when at all possible. 3. A lab test or culture has been done, your results will be reviewed and you will be notified if you need a change in treatment. ADDITIONAL INSTRUCTIONS AND INFORMATION: 1. Your care today has been supervised by a physician who is specially trained in emergency care. Many problems require more than one evaluation for a complete diagnosis and treatment. We recommend that you schedule your follow up appointment as recommended to ensure complete treatment of you illness or injury. If you are unable to obtain follow up care and continue to have a problem, or if your condition worsens, we recommend that you return to the ED. 2. We are not able to safely determine your condition over the phone nor are we able to give sound medical advice over the phone. For these safety reasons, if you call for medical advice we will ask you to come to the ED for further evaluation. 3. If you have any questions regarding these discharge instructions please call the ED at [phone]. SAFETY INFORMATION: In the interest of safety, wellness, and injury prevention; we encourage you to wear your sealbelt, if you smoke; quite smoking, and we encourage family to use a protective helmet for bicycling and other sporting events that present an increased risk for head injury. IF YOUR SYMPTOMS WORSEN OR NEW SYMPTOMS DEVELOP, OR YOU HAVE CONCERNS ABOUT YOUR CONDITION; OR IF YOUR CONDITION WORSENS WHILE YOU ARE WAITING FOR YOUR FOLLOW UP APPOINTMENT; EITHER CONTACT YOUR PRIMARY CARE DOCTOR, THE PHYSICIAN WHOSE NAME AND NUMBER YOU WERE GIVEN, OR RETURN TO THE ED IMMEDIATELY. Scripts Diphenhydramine Hcl (DIPHENHYDRAMINE HCL) 25 Mg Tablet 1 TAB PO Q6-8HRS PRN for ITCHING MDD 100mg for 30 Days, #20 TAB 0 Refills Prov: DUGLAS KOCH DO 03/31/20 Methylprednisolone (MEDROL) 4 Mg Tab.ds.pk 1 PKG PO UD for inflammation, #1 PKG Prov: DUGLAS KOCH DO 03/31/20 DUGLAS KOCH DO Mar 31, 2020 02:18
[2020-03-31] MEDS ORDERED: IOHEXOL 300 MG/ML 100ML VIAL. IV ONE (02:30)
[2020-03-31] MEDS ORDERED: CONTRAST GIVEN. MC PRN (02:30)
--- NOTE | 2020-03-31 02:52 | RAD ---
CT abdomen and pelvis with contrast PQRS statement: CT scans at this facility use dose reduction including either automated exposure cont rol, iterative reconstructions, and /or weight based radiation dosing via mA and kV modification when appropriate to reduce radiation dose to as low as reasonably achievable. Contrast: 75 mL Omnipaque 300 intravenous contrast. HISTORY: Lower abdominal pain. Abdomen findings: Lumbar disc disease with disc osteophytes with spinal canal and neural foraminal st enoses. Lung bases are unremarkable. Subcentimeter right renal hypodensity too small to characterize due to volume averaging, statistically most likely a cyst. Left kidney, adrenals, pancreas, spleen, l iver and gallbladder are unremarkable. Tortuosity and calcified likely aorta and iliac arteries. No a bdominal fluid or adenopathy. Appendectomy. No obstruction or inflammation GI tract. No abdominal flu id or adenopathy. 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 Pelvis findings: Bladder, prostate, rectum and bones are unremarkable. IMPRESSION: No acute process. Appendectomy. Electronically signed by: Miquel Mccormick MD (03/31/2020 2:49 AM) [facility]
[2020-03-31] MEDS ORDERED: DIPH25TA24 PO (03:11)
[2020-03-31] MEDS ORDERED: METH4TAB2 PO (03:11)
[2020-03-31 03:27] VITALS: BP 177/99
== END 2020-03-31 03:32 | disposition home or self-care (01) ==
LOC: ER 23:51
DX: R11.2 Nausea with vomiting, unspecified (principal); D64.9 Anemia, unspecified; F10.121 Alcohol abuse with intoxication delirium; Y90.2 Blood alcohol level of 40-59 mg/100 ml; R10.30 Lower abdominal pain, unspecified; T78.40XA Allergy, unspecified, initial encounter; Z76.5 Malingerer [conscious simulation]; I10 Essential (primary) hypertension; F17.200 Nicotine dependence, unspecified, uncomplicated; Z90.89 Acquired absence of other organs; Z88.1 Allergy status to other antibiotic agents; Z88.5 Allergy status to narcotic agent; Z88.6 Allergy status to analgesic agent
CPT/HCPCS: 36415; 74177; 80048; 80076; 80307; 81001; 82550; 83690; 85025; 96361; 96374; 96375; 99285; G0480; J1100; J1200; J2405; J2765; J3490; J7030; Q9967